=== PATIENT | male | born 1950 | race Caucasian/White ===

== ENCOUNTER 2016-06-25 08:09 | Day surgery (SDC) | payer MEDICARE, OTHER ==
[2016-06-25] MEDS ORDERED: PLATELET IV SET 1 EA INFUS.SET MC ONE (10:15)
[2016-06-25 10:21] VITALS: BP 119/70
[2016-06-25 16:26] VITALS: BP 140/64
[2016-06-25 16:54] VITALS: BP 140/64
[2016-06-25 17:52] VITALS: BP 125/77
[2016-06-25 18:30] VITALS: BP 130/88
== END 2016-06-25 20:00 | disposition home or self-care (01) ==
LOC: DS 08:09 → UNDOADMIN 08:18 → MEDSG2 08:18 → UNDODISIN 20:00 → DS 20:00
PROVIDERS: ATTEND Internal Medicine Hematology & Oncology
DX: K74.69 Other cirrhosis of liver (principal)
CPT/HCPCS: 36415; 36430; 86850; P9034; Z7610; 86901; P9016-BL

== ENCOUNTER 2016-11-28 09:47 | Outpatient (CLI) | payer MEDICARE, OTHER ==
[2016-11-28 10:48] LABS: BASOPHILS % (AUTO) 0.9 % (0.0-2.0); EOSINOPHILS % (AUTO) 2.9 % (0.0-6.0); HEMATOCRIT 32 % (39-51); HEMOGLOBIN 10.6 g/dL (13.5-17.5); LYMPHOCYTES # (AUTO) 0.4 /CMM (0.8-4.8); LYMPHOCYTES % (AUTO) 25.2 % (20.0-44.0); MEAN CORPUSCULAR HEMOGLOBIN 33 PG (26.0-33.0); MEAN CORPUSCULAR HGB CONC 34 g/dl (31.0-36.0); MEAN CORPUSCULAR VOLUME 97 fL (80-96); MONOCYTES # (AUTO) 0.2 /CMM (0.1-1.30); MONOCYTES % (AUTO) 14.8 % (2.0-12.0); NEUTROPHILS # (AUTO) 0.9 /CMM (1.8-8.9); NEUTROPHILS % (AUTO) 56.2 % (43.0-81.0); RDW COEFFICIENT OF VARIATION 18.2 (11.5-15.0); RED BLOOD CELL COUNT(AUTO) 3.26 MIL/uL (4.5-6.0)
[2016-11-28 10:55] LABS: PLATELET COUNT (AUTO) 29 /CMM (150-450); WHITE BLOOD COUNT (AUTO) 1.7 K/uL (4.3-11.0)
[2016-11-28 11:02] LABS: ALBUMIN 2.8 g/dL (3.4-5.0); BILIRUBIN,TOTAL 1.8 mg/dL (0.2-1.0); CALCIUM, SERUM 8.1 mg/dL (8.5-10.1); CREATININE 0.8 mg/dL (0.6-1.3); EOSINOPHILS % (MANUAL) 2 % (0-4); LYMPHOCYTES % (MANUAL) 26 % (16-48); MONOCYTES % (MANUAL) 8 % (0-11.0); NEUTROPHILS % (MANUAL) 64 (42-76); POTASSIUM 3.5 mmol/L (3.5-5.1); TOTAL PROTEIN, SERUM 7.6 g/dL (6.4-8.2)
== END 2016-11-28 23:59 | disposition home or self-care (01) ==
LOC: LAB 09:47
PROVIDERS: ATTEND Internal Medicine Hematology & Oncology
DX: D64.9 Anemia, unspecified (principal); D61.818 Other pancytopenia; D69.6 Thrombocytopenia, unspecified; M25.462 Effusion, left knee
CPT/HCPCS: 36415; 80053-TC; 85025-TC

== ENCOUNTER 2017-01-30 11:10 | Outpatient (CLI) | payer MEDICARE, OTHER ==
[2017-01-30 12:53] LABS: BASOPHILS % (AUTO) 0.3 % (0.0-2.0); HEMATOCRIT 38 % (39-51); HEMOGLOBIN 12.3 g/dL (13.5-17.5); LYMPHOCYTES # (AUTO) 0.6 /CMM (0.8-4.8); LYMPHOCYTES % (AUTO) 12.1 % (20.0-44.0); MEAN CORPUSCULAR HEMOGLOBIN 28 PG (26.0-33.0); MEAN CORPUSCULAR HGB CONC 33 g/dl (31.0-36.0); MEAN CORPUSCULAR VOLUME 87 fL (80-96); MONOCYTES # (AUTO) 0.5 /CMM (0.1-1.30); MONOCYTES % (AUTO) 11.6 % (2.0-12.0); NEUTROPHILS # (AUTO) 3.5 /CMM (1.8-8.9); RDW COEFFICIENT OF VARIATION 19.7 (11.5-15.0); RED BLOOD CELL COUNT(AUTO) 4.32 MIL/uL (4.5-6.0); RETICULOCYTE COUNT 2.1 % (0.6-2.5); WHITE BLOOD COUNT (AUTO) 4.6 K/uL (4.3-11.0)
[2017-01-30 13:07] LABS: ALBUMIN 3.2 g/dL (3.4-5.0); CALCIUM, SERUM 8.2 mg/dL (8.5-10.1); CREATININE 0.8 mg/dL (0.6-1.3); POTASSIUM 3.4 mmol/L (3.5-5.1); TOTAL PROTEIN, SERUM 8.6 g/dL (6.4-8.2)
[2017-01-30 13:11] LABS: PLATELET COUNT (AUTO) 43 /CMM (150-450)
[2017-01-30 13:17] LABS: LYMPHOCYTES % (MANUAL) 11 % (16-48); MONOCYTES % (MANUAL) 13 % (0-11.0); NEUTROPHILS % (MANUAL) 76 (42-76)
[2017-01-30 13:20] LABS: C-REACTIVE PROTEIN 0.7 mg/dL (0.0-0.9); FREE T4 (FREE THYROXINE) 1.08 ng/dL (0.76-1.46); THYROID STIMULATING HORMONE 1.251 uIU/mL (0.358-3.74)
[2017-02-03 04:09] LABS: *IFE A/G RATIO 0.9 (0.7-1.7); *IFE ALBUMIN 3.7 g/dL (2.9-4.4); *IFE ALPHA-2-GLOBULIN 0.4 g/dL (0.4-1.0); *IFE BETA GLOBULIN 0.8 g/dL (0.7-1.3); *IFE GAMMA GLOBULIN 2.9 g/dL (0.4-1.8); *IFE M-SPIKE Not Observed g/dL (Not Observed); *IFEALPHA-1-GLOBULIN 0.2 g/dL (0.0-0.4); *SPE PROTEIN TOTAL 8.1 g/dL (6.0-8.5); IMMUNOGLOBULIN A, SERUM 788 mg/dL (61-437); IMMUNOGLOBULIN G, SERUM 2725 mg/dL (700-1600); IMMUNOGLOBULIN M, SERUM 150 mg/dL (20-172)
== END 2017-01-30 23:59 | disposition home or self-care (01) ==
LOC: US 11:10
PROVIDERS: ATTEND Internal Medicine Hematology & Oncology
DX: K80.20 Calculus of gallbladder without cholecystitis without obstruction (principal); R16.1 Splenomegaly, not elsewhere classified; N28.1 Cyst of kidney, acquired; D61.818 Other pancytopenia; R63.4 Abnormal weight loss; R79.89 Other specified abnormal findings of blood chemistry
CPT/HCPCS: 36415; 76700-TC; 80053-TC; 82105; 82728-TC; 82746; 82784; 83540-TC; 84155; 84165; 84439-TC; 84443-TC; 85025-TC; 85045-TC; 86140-TC; 86334; 86431-TC